=== PATIENT | male | born 1965 | race Caucasian/White ===

== ENCOUNTER → 2024-11-08 | Outpatient (CLI) | payer OTHER | END | disposition home or self-care (01) | LOC: LABPAT 10:03 | PROVIDERS: ATTEND Orthopaedic Surgery | DX: Z01.812 Encounter for preprocedural laboratory examination (principal); Z22.322 Carrier or suspected carrier of Methicillin resistant Staphylococcus aureus; M50.11 Cervical disc disorder with radiculopathy, high cervical region | CPT/HCPCS: 86850; 86900; 86901; 87070 ==

== ENCOUNTER 2024-12-11 10:04 | Day surgery (SDC) | payer SELFPAY ==
--- NOTE | 2024-12-10 12:21 | P.HPOR ---
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 MRI reveals multilevel degenerative changes from C3-7 with severe stenosis, cord compression, and disc herniations, while CT confirms maintained cervical lordosis with minimal facet arthrosis. Physical examination demonstrates bilateral upper extremity weakness (4/5 strength), positive Spurling's sign on the right, and dermatomal deficits in C5-6 and C6-7 distributions. Despite conservative management including PT, medications, and activity modifications, symptoms have progressively worsened, leading to the recommendation for C3-7 total disc replacement. The patient has elected to proceed with surgery after thorough discussion of treatment options and associated risks. 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 Schroeder presents to the office today, 11/08/24, for a pre-operative appointment preceding his C3-7 total disc replacement. He reports pain that radiates into the bilateral upper extremities. He notes numbness and tingling in his bilateral hands with the right being slightly worse than the left. Patient states he is having night time symptoms related to the neck which is making it difficult to fall asleep and stay asleep. He is taking Aleve and Aspirin for his symptoms. Patient ambulates independently. He has tried OTC meds as well as Rx Medications without any improvement of his sx. They continue to get worse and are affecting his day to day activities. He is an active individual and wants to remain this way, but his multilevel cervical issues are preventing this in the way of his radiculopathy, UE issues as well as his disc pain. He states he is starting to have more dexterity issues in his hands and that his fingers are more numb than they were before making it difficult for him to determine what he is grasping. He states he has researched different procedures and has reviewed his MRIa s well as CT scans with other physicians. 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 We discussed this at length. * Patient denies any f/c/sob/cp, perineal numbness or tingling, bowel, or bladder incontinence/retention. * The patients past social, medical, family, surgical history, as well as review of systems, have been reviewed. Please refer to the History and Physical form that has been scanned into our electronic medical record system. * 16 points review of systems completed and as stated in HPI, all other systems reviewed are negative. PAST TREATMENTS: PAST IMAGING: -YES, xray, MRI and CT scan - TRAUMA RELATED: -NO - WORK RELATED: -NO - PT IN LAST 6 MONTHS: -YES - PHYSICIAN DIRECTED HOME EXERCISE PROGRAM: -YES - ACTIVITY MODIFICATION: -YES - MEDICATIONS: -YES, NSAIDs, Celebrex, oral steroids - ALTERNATIVE INTERVENTIONS (CHIROPRACTIC, ACCUPUNCTURE, MASSAGE, RICE): -YES - BRACING: -NO - INJECTIONS (KERRY, TF, RFA): -NO MEDICAL HISTORY: Past Medical History: REVIEWED STATED IN CHART Past Surgical History: REVIEWED STATED IN CHART Social History: REVIEWED STATED IN CHART SMOKING: Never smoker ETOH: None SUBSTANCES: None Family History: REVIEWED STATED IN CHART P1 Current Medications: Rx: amLODIPine 10 mg tablet Ref: 0 Instructions: take 1 tablet (10 mg) by oral route once daily Rx: aspirin 81 mg tablet,delayed release Ref: 0 Instructions: take 1 tablet (81 mg) by oral route once daily Rx: lisinopriL 40 mg tablet Ref: 0 Instructions: take 1 tablet (40 mg) by oral route once daily Rx: metoprolol tartrate 100 mg tablet Ref: 0 Instructions: take 1 tablet (100 mg) by oral route 2 times per day with meals Rx: CeleBREX 200 mg capsule Ref: 0 Instructions: take 1 capsule (200 mg) by oral route 2 times per day P1 PHYSICAL EXAM: General: AOX3, NAD, Well hydrate, well nourished, in no acute distress HEENT: No lumps or masses Extremities: No color changes, no pooling INTEGUMENT: Appearance: Normal color and turgor Surgical Incisions: N/A Hairy Patches: ABSENT Dorsal Skin Dimples: Normal [employer] spots: ABSENT PALPATION: TTP Midline: YES Paracervical: YES Parathoracic: NO Paralumbar: YES SIJ TESTING (Donal's, FABER4, Compression, Distraction, Thigh Thrust, Hip Thrust): NOT TESTED POSTURAL BALANCE: Coronal: BALANCED Sagittal: BALANCED Shoulder height: LEVEL Pelvic Girdle: LEVEL ROM AND APPEARANCE: Neck: RESTRICTED Lumbar: UNRESTRICTED Shoulders: Symmetrical Hips: Symmetrical Knees: Symmetrical Hands: Symmetrical Feet: Symmetrical VASCULAR STATUS: PALPABLE PULSES B/L UE AND LE 2/4 RAD/ULNAR/DP/PT Edema: NONE NEUROLOGICAL EXAMINATION: Mental Status: Awake, alert, fully oriented with normal attention, concentration, and memory. Fluent appropriate speech. CRANIAL NERVES: I: Olfactory not assessed. II: Visual acuity normal, no visual field deficit noted with confrontation. III, IV: Normal pupillary reflexes & intact extraocular movements without nys tagmus. V, : Intact symmetrical facial sensation. VII: Intact symmetrical facial motor movement: Hearing intact. IX, X: Intact gag, swallow, & normal voice. XI: Sternocleidomastoid, trapezius function intact. XII: Tongue midline with normal movements. 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 4 4 LOWER EXTREMITY RIGHT LEFT Hip Flexion 5 5 Knee Extension 5 5 Knee Flexion 5 5 Dorsiflexion 5 5 Plantarflexion 5 5 EHL 5 5 FHL 5 5 REFLEXES (0-4/2, NT): RIGHT LEFT Bicep 2 2 Brachioradialis 3 2 Triceps 2 2 Patellar 2 2 Achilles 1 2 PATHOLOGICAL REFLEXES: RIGHT LEFT WILSON'S ABSENT ABSENT CLONUS ABSENT ABSENT BABINSKI ABSENT ABSENT RECTAL TONE: INTACT/NT SENSATION (0-4, NT): Sensation intact to LT and Pain * C5-T1 distribution BUE * L2-S2 distribution BLE *Exceptions below* DERMATOMAL DEFICIT/RADICULAR PATTERN: C5-6 , C6-7 BUE GAIT AND FUNCTIONAL EVALUATION: AMBULATORY AID NONE ROMBERG'S TEST INTACT HAND AND FINGER DEXTERITY INTACT NO DYSDIADOCHOKINESIA EXAM NEG B/L YES TOE/HEEL WALK INTACT WITH GOOD BALANCE YES SQUAT AND RISE W/O ASSISTANCE TO 60 DEG KNEE FLEXION YES SINGLE LEG STANCE INTACT TRENDE[place]G NEG IMAGING: MRI Date: 08/22/24 Location: [facility] MRI Region: CERVICAL Contrast: N IMAGES ARE REVIEWED WITH THE PATIENT IN OFFICE AND DEMONSTRATE THE FOLLOWING: FINDINGS: Multilevel degenerative changes with love PLL thickening at every level from C3-7 with multilevel disc herniations causing varying degrees of moderate to severe stenosis at these levels. The PLL thickening is concerning for OPLL and CT is warrented to evaluate. There is disc height loss and facet arthrosis noted as well. No overt myelomalacial changes but there is cord compression noted that is bony and ST related in nature. No other lesions noted at this time. No fractures. CT Date: 08/22/24 Location: [facility] MRI Region: CERVICAL Contrast: N IMAGES ARE REVIEWED WITH THE PATIENT IN OFFICE AND DEMONSTRATE THE FOLLOWING: FINDINGS: No OPLL present Mild anterior osteophyte formations at the levels of the discs. Disc collapse at C3-7 levels with anterior degenerative changes. Minimal facet arthrosis noted overall with maintained cervical lordosis and alignment overall. No acute fracture or lesions noted. C0-1 and C1-2 stable. IMPRESSION: It was my pleasure to have seen and examined Bubba. I reviewed the patient's clinical syndrome, physical findings, and imaging studies during the appointment today. It is my impression that the patient has a diagnosis of. 1.C3-C7 spondylosis and stenosis, severe, soft tissue, disc and ligamental stenosis contributory. 2. UE radiculopathy 3. UE paresthesias 4. Neck pain PLAN: Based on my findings I suggest the following course of action: * We discussed at length different treatment options for the patient including non-surgical in the form of medications, continued PT, and conservative measures, injections and surgical options in the form of ACDF, cervical disc replacement, laminoplasty and cervical fusion. We have discussed each at length including but not limited to, potential risks, benefits, pitfalls, outcome expectations. The patient is well informed and very active and this is preventing him from continuing to be active and after his research and discussions with several other physicians and surgeons he has elected to proceed forward with total disc replacement C3-7. We discussed this at length as well as the procedure and risks as are outlined below. The patient would like to go ahead and schedule this procedure with us. He will speak with Valencia at a later date for this scheduling. He understands and is comfortable with this POC. * Surgical Recommendation: C3-7 total disc replacement * Follow up: surgical clearances PCP, pre op labs, EKG and CXR as well as pre op MRSA screen. Cont with current med regiment. New Celebrex Script written today for pt. Cont with conservative treatments as able. Surgical Procedure Risk Review Bubba Schroeder is a 59 year old male presenting for evaluation of sudden onset of UE radiculopathy, progressive UE paresthesias, hand paresthesias, weakness, dropping objects and neck pain. It was my pleasure to have seen and examined Mr. Schroeder. In our visit today we have had a chance to go over subjective complaints, physical examination findings and treatments, including the natural course history without intervention and various interventional options. The imaging demonstrates C3-7 cervical disc displacement with HNP and stenosis that is moderate to severe at each level with central and foraminal stenosis. Minimal facet arthrosis and maintained spinal alignment. NO OPPLL present. On physical exam, Mr. Schroeder demonstrates LUE decreased sensation in the C3-6 distribution of the LUE as well as C4-5 and C7 in the RUE distribution. 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 Thereis no clonus, + hoffmans Left and no babinski. Pt is having difficulty with fine motor skills of the UE. Denies any other sx at this time . I explained to the patient that as his condition progresses it could cause Continued or progressive changes leading to worsening of sx . At this time, based on the patients imaging and physical exam, I recommend surgery in the form or a: C3-7 TOTAL DISC REPLACEMENT . I discussed the risk and benefits of this procedure at length with Mr. Schroeder. The patient agreed to consider pursuing the procedure mentioned above. Plan: 1. C3-7 TOTAL DISC REPLACEMENT 2. Follow up with PCP for surgical clearance 3. Review of surgical risks and benefits as well as an educational packet on the proposed surgical procedure. 4. the indications were discussed with the patient for this disc replacement system, see below. for specific details regarding potential risks as well as guidelines and off label usage. Pt is aware and comfortable with all of this as it was discussed with him and explained in detail and he expressed understanding. Risks: All surgical procedures come with inherent risks, including those related to positioning, anesthesia, intraoperative findings, and postoperative complications. It is important to understand that surgery does not come with any guarantee of a successful outcome as complications and adverse events are always possible. The patient was given a handout in office today discussing the surgical procedure and risks associated with the intervention, both of which were discussed with the patient. These risks include but are not limited to the following: ? Experiencing same, different or even worse symptoms in back, neck, arms, or legs compared to before surgery. ? Requiring further surgery or other forms of treatment presently or at some time in the future at same or other levels of the intended spine surgery. ? On an extreme but fortunately relatively rare basis severe complication such as blindness, stroke, heart attack, temporary and/or permanent nerve injury, paralysis, coma, or may occur, sometimes without known explanation. ? Surgical complications may include but are not limited to risk of infection, fluid accumulation in the surgical dissection site, including a seroma or hematoma, that requires additional surgery, wound drainage, bleeding, new numbness or weakness, vision changes/loss, spinal fluid leakage, non-healing and/or infected incision, headaches, difficulty or inability to swallow, hoarseness, hemopneumothorax, pneumothorax, impotence, retrograde ejaculation, vaginal dryness; injury to nerves, spinal cord, blood vessels, lymphatics or other vital organs (i.e., bowel injury, injury to the great vessels); heterotopic bone formation; complications related to the hardware such as screws, rods, cages including misplaced hardware, device failure, instrumentation at the wrong spine level, hardware fracture/breakage, or hardware loosening; vertebral failure of the spinal column above or below the newly placed hardware; retained surgical instrumentations or devices and the need for further surgery. ? Medical risks of the planned spine surgery include but are not limited to generalized Infections to the whole body or local areas outside of the surgical site (sepsis), heart attack, bleeding, anaphylaxis, meningitis, seizure, epilepsy, hearing loss, burn river, laceration of the head or other areas of the body, bruising, hypersensitivity of the skin, bladder over distension; allergic reaction; shoulder injury related to positioning; fat, blood and air clots to other areas of the body like heart, lungs, brain; failure of internal organs such as lungs, kidneys, liver and excessive bleeding. If blood transfusions are necessary, note that transfusions may cause intolerance reactions such as anaphylaxis or other complex reactions. Despite best efforts, the results of spine surgery might not heal in terms of bone, soft tissues such as skin, fascia, ligaments, and joints. Additionally, in order to achieve best possible results, spine surgery may be carried out beyond the initially planned levels and involve decompression, fusion including insertion of hardware at levels other than the original intended area of surgical interest change some portions of the procedure in order to ensure the best possible outcomes. With spine surgery and spinal fusion, there are different off label uses of instrumentation (devices, implants and hardware) as well as biological substances (bone morphogenic proteins, demineralized bone matrix) as well as using extra bone from allograft sources (i.e. cadaver bone) or autograft (iliac crest bone, ribs, or the spine itself). The patient has been given information about these practices and their inherent risks and benefits. [place] [facility] Physician Assistants are medically trained surgical providers who function in the outpatient, inpatient, and operating room setting under the direct supervision of the attending surgeon.They assist in the operating room with direct supervision of the attending surgeons. The patient has had a chance to review all the listed information, has been given print outs detailing this information, and has had all his/her questions answered to their satisfaction. It was my pleasure to have seen and examined Mr. Schroeder. In our visit today we have had a chance to go over my understanding of our patient's current condition, the natural course history without intervention and various interventional options. Questions were invited and answered, and the patient wishes to proceed as outlined above. I have seen and examined the patient for 25 minutes and we have spent more than 50% of the time in repeat and detailed counseling about the patient's condition, its natural course history with out and as much as can be predicted with surgery and re-review of various surgical treatment options. In conclusion,Mr. Schroeder and his spouse/partner requested we proceed with the tiffanie boone suggested surgery and are willing to accept risks and limitations of the suggested surgery as nature of the disease process and our best attempts at treatment for the condition. 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 Over the past 6+ weeks, he has experienced worsening bilateral upper extremity radiculopathy (right worse than left), declining fine motor skills, progressive hand numbness affecting object identification, and consistent neck pain rated 7/10 on the VAS scale. Physical examination reveals bilateral upper extremity weakness (4/5 strength across all muscle groups), positive Spurling's sign on the right, and dermatomal deficits in C5-6 and C6-7 distributions bilaterally. Imaging studies confirm severe multilevel pathology, with MRI showing multilevel degenerative changes C3-7, severe central and foraminal stenosis, cord c ompression, and multiple disc herniations. CT scanning demonstrates maintained cervical lordosis with minimal facet arthrosis, making him an appropriate candidate for arthroplasty. Despite aggressive conservative management including physical therapy, multiple medication trials (NSAIDs, oral steroids, muscle relaxants), activity modifications, and alternative therapies, the patient demonstrates documented progression of symptoms between his initial visit on 08/30/24 and follow-up on 09/18/24. The proposed C3-7 total disc replacement is medically necessary based on his progressive neurological deficits, failed conservative management, significant functional impairment affecting his occupation, and radiographic evidence of severe multilevel pathology with cord compression. The patient's [place] iv[place] lifestyle, relatively young age, and occupational demands make him an excellent candidate for arthroplasty over fusion, as maintenance of cervical mobility is crucial for his functional needs. Without intervention, there is significant risk of further neurological deterioration. The chosen procedure is both reasonable and necessary given his clinical presentation, progressive decline, and appropriate anatomical findings supporting arthroplasty. 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 Physical examination documents significant bilateral upper extremity weakness (4/5 strength), dermatomal deficits in C5-6 and C6-7 distributions bilaterally, and impaired fine motor control. Imaging studies (MRI and CT dated 08/22/24) demonstrate severe multilevel degenerative changes from C3-7 with cord compression, severe central and foraminal stenosis, and multiple disc herniations. CT confirms maintained cervical lordosis and minimal facet arthrosis, making him an appropriate candidate for arthroplasty over fusion. The patient has failed comprehensive conservative management including physical therapy, multiple medication trials (NSAIDs, oral steroids, muscle relaxants), and activity modifications. Documentation shows progression of symptoms between initial evaluation (08/30/24) and follow-up (09/18/24), with worsening neurological deficits impacting his ability to work and perform activities of daily living. Given his relatively young age, active lifestyle, occupational demands, and appropriate anatomical findings, total disc replacement is the optimal surgical approach to address his pathology while maintaining cervical mobility. CPT codes for authorization include 17906 (second level arthroplasty), 74337 (third and fourth level arthroplasty), 23409 (removal of arthroplasty), and 44599 (anterior cervical discectomy). Primary diagnosis codes include M50.12, M48.02, M54.12, and M50.32. FOLLOW UP: POST-OP PLAN AT NEXT VISIT: RECHECK PATIENT EDUCATION: Medications Reviewed: YES In our visit today Mr. Schroeder and I have had a chance to go over my understanding of the patient's current condition, the natural course history without intervention and various interventional options. Questions were invited and answered, and the patient wishes to proceed as outlined above. I will be sure to keep you updated after Mr. Schroeder returns here for further follow-up. Thank you again for your referral. Please do not hesitate to contact me if you have any further questions. Signed and authenticated by: Kyle Palacios [facility] [address] [place] [id number] . This message is confidential, intended only for the named recipient(s) and may contain information that is privileged or exempt from disclosure under applicable law. If you are not the intended recipient(s), you are notified that the dissemination, distribution or copying of this information is prohibited. If you received this message in error, please notify the sender then delete this message. # SIGNED BY Kyle Hammonds (GOO)11/22/2024 07:03AM Past Medical History Past Medical History: Atrial Fibrillation, Hyperlipidemia, Hypertension History of Any Multi-Drug Resistant Organisms: None Reported Past Surgical History: Appendectomy, Cardiac Ablation, Orthopedic Surgery Additional Past Surgical History / Comment(s): menisicus repair, Past Anesthesia/Blood Transfusion Reactions: No Reported Reaction Additional Past Anesthesia/Blood Transfusion Reaction / Comment(s): no blood tx hx Smoking Status: Never smoker - Past Family History Father Family Medical History: Cancer Additional Family Medical History / Comment(s): lung Mother Family Medical History: Cancer Additional Family Medical History / Comment(s): lung Medications and Allergies Home Medications Medication Instructions Recorded Confirmed Type Aspirin [Adult Low Dose Aspirin EC] 81 mg PO DAILY 12/07/24 12/07/24 History Celecoxib [CeleBREX] 200 mg PO BID 12/07/24 12/07/24 History Metoprolol Succinate (ER) [Toprol 100 mg PO BID 12/07/24 12/07/24 History Xl] Rosuvastatin Calcium 20 mg PO DAILY 12/07/24 12/07/24 History Terbinafine [LamISIL] 250 mg PO DAILY 12/07/24 12/07/24 History amLODIPine BESYLATE [Amlodipine 10 mg PO DAILY 12/07/24 12/07/24 History Besylate] lisinopriL 40 mg PO DAILY 12/07/24 12/07/24 History Allergies Allergy/AdvReac Type Severity Reaction Status Date / Time No Known Allergies Allergy Verified 12/07/24 08:47 Physical Examination Osteopathic Statement: *. No significant issues noted on an osteopathic structural exam other than those noted in the History and Physical/Consult.
[~2024-12-11 10:04] MED LIST: HYDROmorphone 0.5 MG/0.5 ML SYRINGE IVP PRN; LIDOCAINE 1% (10MG/ML) FOR IV START INTRADERMA PRN; MIDAZOLAM 2 MG/2 ML VIAL IV PRN; ONDANSETRON 4 MG/2 ML VIAL IVP PRN; TRANEXAMIC 1,000 MG/100ML-NACL 1,000 MG in SALINE 1 100ML.BAG IVPB PRN; fentaNYL (PF) 50 MCG/ML 2 ML AMP IVP PRN
[2024-12-11] MEDS: IV FLUID CONTINUATION 1,000 ML IV ONE ×3 (10:38→11:01)
[2024-12-11] MEDS: ACETAMINOPHEN TAB 500 MG TAB PO PRN (11:02)
[2024-12-11] MEDS: GABAPENTIN 300 MG CAP PO PRN (11:02)
[2024-12-11] MEDS: LACTATED RINGERS 1,000 ML IV SCH (11:02)
[2024-12-11] MEDS: ONDANSETRON 4 MG/2 ML VIAL IVP ONE (11:03)
[2024-12-11] MEDS: DEXAMETHASONE SOD PHOSPHATE 4 MG/ML 1 ML VIAL IV ONE (11:03)
[2024-12-11 11:19] LABS: Basophils % (A) 1 %; Eosinophils # (A) 0.3 k/uL (0-0.7); Eosinophils % (A) 6 %; HCT 48.4 % (39.0-53.0); HGB 15.7 gm/dL (13.0-17.5); Lymphocytes # (A) 1.4 k/uL (1.0-4.8); Lymphocytes % (A) 29 %; MCH 30.8 pg (25.0-35.0); MCHC 32.4 g/dL (31.0-37.0); MCV 95.2 fL (80.0-100.0); Mean Platelet Volume 7.7; Monocytes # (A) 0.3 k/uL (0-1.0); Monocytes % (A) 7 %; Neutrophils # (A) 2.7 k/uL (1.3-7.7); Neutrophils % (A) 55 %; Platelet Count 194 k/uL (150-450); RBC 5.09 m/uL (4.30-5.90); RDW 12.9 % (11.5-15.5); WBC 4.8 k/uL (3.8-10.6)
[2024-12-11 12:03] LABS: African American GFR (CKD) >90 (>60 ml/min/1.73 sqM); Anion Gap 12 mmol/L; Blood Urea Nitrogen 19 mg/dL (9-20); Calcium 9.1 mg/dL (8.4-10.2); Carbon Dioxide 19 mmol/L (22-30); Chloride 107 mmol/L (98-107); Glucose 98 mg/dL (74-99); Non-African American GFR(CKD) 80 (>60 ml/min/1.73 sqM); Sodium 138 mmol/L (137-145)
[2024-12-11 12:05] LABS: Potassium 5.1 mmol/L (3.5-5.1)
[2024-12-11] MEDS ORDERED: PROPOFOL 10 MG/ML 20 ML VIAL IV ONE (12:43)
[2024-12-11] MEDS ORDERED: NEOSTIGMINE 1 MG/ML 10 ML VIAL ONE (12:43)
[2024-12-11] MEDS ORDERED: HYDROmorphone (PF) 1 MG/ML ONE (12:43)
[2024-12-11] MEDS ORDERED: GLYCOPYRROLATE 0.2 MG/ML 2 ML VIAL ONE (12:43)
[2024-12-11] MEDS ORDERED: ROCURONIUM 10 MG/ML (5 ML VIAL) IV ONE (12:43)
[2024-12-11] MEDS ORDERED: SUCCINYLCHOLINE CHLORIDE 200 MG/10 ML VIAL IV ONE (12:43)
[2024-12-11] MEDS ORDERED: fentaNYL (PF) 50 MCG/ML 2 ML AMP ONE (12:43)
[2024-12-11] MEDS ORDERED: LIDOCAINE 1% INJ 10MG/ML (20 ML MDV) ONE (12:43)
[2024-12-11] MEDS ORDERED: KETAMINE HCL IN 0.9 % NACL 50 MG/5 ML SYRINGE ONE (12:43)
[2024-12-11] MEDS ORDERED: MIDAZOLAM 2 MG/2 ML VIAL ONE (12:43)
[2024-12-11] MEDS ORDERED: TRANEXAMIC 1,000 MG/100ML-NACL PREMIX BAG ONE (12:43)
[2024-12-11] MEDS: THROMBIN (BOVINE) 5,000 UNIT VIAL TOPICAL ONE (12:46)
[2024-12-11] MEDS: LACTATED RINGERS 1,000 ML IV ONE ×2 (13:41→17:09)
[2024-12-11] MEDS ORDERED: CYCLOBENZAPRINE 5 MG TAB PO PRN (15:00)
[2024-12-11] MEDS ORDERED: MAGNESIUM HYDROXIDE 2,400 MG/30 ML CUP PO PRN (15:00)
[2024-12-11] MEDS ORDERED: HYDROcodone/APAP 5-325MG 1 EACH TAB PO PRN (15:00)
[2024-12-11] MEDS ORDERED: ONDANSETRON 4 MG/2 ML VIAL IVP PRN (15:00)
[2024-12-11] MEDS ORDERED: SENNOSIDES-DOCUSATE SODIUM 1 EACH TAB PO PRN (15:00)
[2024-12-11] MEDS ORDERED: HYDROmorphone 0.5 MG/0.5 ML SYRINGE IVP PRN (15:00)
--- NOTE | 2024-12-11 17:55 | XR ---
EXAMINATION TYPE: XR cervical spine limited, FL guidance operating room Intraoperative/procedural flu oroscopic services were provided. CLINICAL INDICATION:Male, 59 years old with history of POST CERVICAL DECOMPRESSION; , [facility] FINDINGS: Postsurgical changes from cervical decompression. No radiographic evidence for complication. Total fluoroscopy time is 1.28 min. DAP: 2.8147 Gycm2 Please see the operative/procedural note for further details. [facility], , 12/11/2024 5:53 PM
--- NOTE | 2024-12-11 18:00 | P.PN ---
Progress Note - Text Progress Note Date: 12/11/24 BRIEF POST OP: PRE OP DX: 1.C3-C7 spondylosis and stenosis, severe, soft tissue, disc and ligamental stenosis contributory. 2. UE radiculopathy 3. UE paresthesias 4. Neck pain POST OP DX: SAME PROCEDURE: C5-7 ACDF C3-5 TDA SURGEON: NASRA ASSIST: BRANCH ANESTHESIA: GETA EBL: 75 cc FLUIDS: 2000 cc URINE: 350cc COMPLICATION: NONE DISPO: STABLE TO PACU PLAN: -ADMIT TO OBS -SOFT C COLLAR -AMBULATE WITH ASSIST -PT/OT -PAIN CONTROL PRN -DRAIN MANAGEMENT -GI/DVT PPX -PLAN FOR DC HOME TOMORROW IN AM
[2024-12-11] MEDS: GABAPENTIN 300 MG CAP PO SCH (20:19)
[2024-12-11] MEDS: ACETAMINOPHEN TAB 325 MG TAB PO SCH (20:20)
[2024-12-11] MEDS: HYDROmorphone 1 MG/ML 1 ML SYRINGE IVP PRN (20:26)
--- NOTE | 2024-12-12 00:21 | P.CONS ---
History of Present Illness - Reason for Consult Consult date: 12/11/24 - History of Present Illness Patient is a 59-year-old male with a past medical history atrial fibrillation (not on anticoagulation), hyperlipidemia, hypertension. He is here due to scheduled surgery for progressive severe cervical spine stenosis, cord compression, disc herniations that is characterized by bilateral upper extremity radiculopathy, numbness, tingling that is worse on the right side. He is post op day 1 from scheduled C3-C7 total disc replacement. Patient denies having a bowel movement and has not voided yet. Patient states pain levels are minimal at 2/10 at the time of interview. Patient denies any headache, chest pain, shortness of breath, abdominal pain. Pertinent positives and negatives as discussed above, a complete review of systems was performed and all other systems are negative. Vitals: Signs Reviewed Physical Exam: General: nontoxic, no distress, appears at stated age Derm: warm, dry, intact Head: atraumatic, normocephalic, symmetric Neck: Soft c-collar in place Eyes: EOMI, anicteric sclera Mouth: no lip lesion, mucus membranes moist Cardiovascular: S1 S2 reg, no murmur, rubs, or gallops Lungs: CTA bilateral, no rhonchi, no rales, no accessory muscle use Abdominal: mildly distended non-tender to palpataion, no appreciable organomegaly Extremities: no gross muscle atrophy, no edema, no contractures Neuro: Alert, Oriented, CNII-XII grossly intact, gait normal Psych: well appearing, appropriate affect Data received today: WBC 4.8, Hgb 15.7, platelet 194, sodium 138, potassium 5.1, CO2 19, BUN 19, creatinine 1.02 Assessment and Plan: #. Hypertension #. Hyperlipidemia #. Atrial fibrillation (not on anticoagulation) Continue amlodipine 10 mg p.o. daily Continue lisinopril 40 mg p.o. daily Continue metoprolol succinate 100 mg p.o. twice daily Continue rosuvastatin 20 mg p.o. daily Continue home ASA 81 mg po qd #. Severe spinal spondylosis and stenosis s/p C3-C7 total disc replacement POD 1 Pain, DVT prophylaxis, and antibiotics deffered to ortho team PT/OT ortho team likely to discharge Thank you for this consultation. Will continue to follow for duration of hospital course. Please do not hesitate for any questions. Liya Ozuna MD PGY-1 IM Dictation was produced using [employer] dictation software. please excuse any grammatical, word or spelling errors. Past Medical History Past Medical History: Atrial Fibrillation, Hyperlipidemia, Hypertension History of Any Multi-Drug Resistant Organisms: None Reported Past Surgical History: Appendectomy, Cardiac Ablation, Orthopedic Surgery Additional Past Surgical History / Comment(s): menisicus repair, Past Anesthesia/Blood Transfusion Reactions: No Reported Reaction Additional Past Anesthesia/Blood Transfusion Reaction / Comm: no blood tx hx Past Psychological History: No Psychological Hx Reported Smoking Status: Never smoker Past Alcohol Use History: Daily Additional Past Alcohol Use History / Comment(s): 2-4 drinks per day Past Drug Use History: None Reported - Past Family History Father Family Medical History: Cancer Additional Family Medical History / Comment(s): lung Mother Family Medical History: Cancer Additional Family Medical History / Comment(s): lung Medications and Allergies Home Medications Medication Instructions Recorded Confirmed Type Aspirin [Adult Low Dose Aspirin EC] 81 mg PO DAILY 12/07/24 12/11/24 History Celecoxib [CeleBREX] 200 mg PO BID 12/07/24 12/11/24 History Metoprolol Succinate (ER) [Toprol 100 mg PO BID 12/07/24 12/11/24 History Xl] Rosuvastatin Calcium 20 mg PO DAILY 12/07/24 12/11/24 History Terbinafine [LamISIL] 250 mg PO DAILY 12/07/24 12/11/24 History amLODIPine BESYLATE [Amlodipine 10 mg PO DAILY 12/07/24 12/11/24 History Besylate] lisinopriL 40 mg PO DAILY 12/07/24 12/11/24 History Allergies Allergy/AdvReac Type Severity Reaction Status Date / Time No Known Allergies Allergy Verified 12/11/24 10:47 Physical Exam Vitals: Vital Signs Temp Pulse Resp BP Pulse Ox 12/11/24 21:24 93 169/106 97 12/11/24 21:09 93 175/104 93 L 12/11/24 20:54 92 166/97 94 L 12/11/24 20:38 87 162/101 96 12/11/24 20:24 98.1 F 95 18 175/102 98 12/11/24 19:35 79 16 143/78 98 12/11/24 19:16 78 16 149/79 97 12/11/24 19:01 73 16 129/81 99 12/11/24 18:46 76 16 141/89 12/11/24 18:31 75 14 145/89 96 12/11/24 18:23 69 14 130/85 99 12/11/24 18:08 74 14 123/73 99 12/11/24 17:53 97.2 F L 75 14 126/76 98 12/11/24 11:15 154/95 12/11/24 10:51 97.0 F L 68 16 166/95 99 Intake and Output 12/11/24 12/11/24 12/12/24 14:59 22:59 06:59 Intake Total 2350 300 Output Total 670 Balance 2350 -370 Intake: IV 2350 300 Output: Urine 570 Estimated Blood Loss 100 Other: Weight 115.4 kg 115.4 kg Results CBC & Chem 7: 12/11/24 10:56 12/11/24 10:56 Labs: Abnormal Lab Results - Last 24 Hours (Table) 12/11/24 Range/Units 10:56 Carbon Dioxide 19 L (22-30) mmol/L
--- NOTE | 2024-12-12 06:24 | P.OP ---
Date of Procedure: 12/11/24 Preoperative Diagnosis: 1.C3-C7 spondylosis and stenosis, severe, soft tissue, disc and ligamental stenosis contributory. 2. UE radiculopathy 3. UE paresthesias 4. Neck pain Postoperative Diagnosis: 1.C3-C7 spondylosis and stenosis, severe, soft tissue, disc and ligamental st enosis contributory. 2. UE radiculopathy 3. UE paresthesias 4. Neck pain Procedure(s) Performed: 1. C6-7 ANTERIOR CERVICAL ARTHRODESIS 2. C5-6 ANTERIOR CERVICAL ARTHRODESIS 3. C4-5 CERVICAL DISC ARTHROPLASTY 4. C3-4 CERVICAL DISC ARTHROPLASTY 5. C5-6 AND C6-7 ANTERIOR INSTRUMENTATION 6. 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 MRI reveals multilevel degenerative changes from C3-7 with severe stenosis, cord compression, and disc herniations, while CT confirms maintained cervical lordosis with minimal facet arthrosis. Physical examination demonstrates bilateral upper extremity weakness (4/5 strength), positive Spurling's sign on the right, and dermatomal deficits in C5-6 and C6-7 distributions. Despite conservative management including PT, medications, and activity modifications, symptoms have progressively worsened, leading to the recommendation for C3-7 total disc replacement. The patient has elected to proceed with surgery after thorough discussion of treatment options and associated risks. We again discussed fusion as back up plan and he is OK with whatever needs to be done to treat him appropriately. We discussed risks and benefits again of all with and him. Description of Procedure: C3-5 TDA; C5-7 ACDF The patient was seen and examined in the preoperative area. All preoperative protocols were followed. Informed consent was obtained, risks and benefits of the procedure were discussed at length. Risks including bleeding infection damage to the surrounding tissue and risk of reoperation were discussed with the patient. Risk of anesthesia up to and including was discussed with the patient. These are outlined in the risk review. They were willing to accept these risks and all the risks of surgery. The patient was given a weight-based dose of antibiotics in the form of 2 g Ancef. The patient was seen and evaluated by the anesthesia team who deemed them fit for surgery. The site was marked, the patient was willing to proceed with the procedure. The patient was transferred to the operative suite by the Department of a nesthesia. They were then drifted off to sleep by the department anesthesia and GETA was performed. The patient tolerated this well. Oneil catheter was placed by nursing staff, a-traumatically. Once confirmation of lines and ventilation the patient was transferred to a Supine Agapito table very carefully. All bony prominences including wrists, elbows, axilla, chest, hips, and thighs, and feet were padded very well. Special attention was paid to the genitalia, and these were padded accordingly. SCDs were placed on bilateral lower extremities and were connected. Arms were well padded and placed at their side thumbs up. Once in position, again we confirmed good ventilation capabilities and that lines were running appropriately. The patients Cervical spine was then exposed. 1010s were placed outlining the incision site. Standard alcohol was used to clean the incision site and allowed to dry. C-arm was used to bio-jose l the patient and confirm level for incision which was marked with a skin marker. Operative briefing was performed with all teams and everyone in agreement to proceed. The patient was then prepped and draped in a normal sterile fashion. Timeout was then performed, and all parties agreed with the procedure to be performed. Transverse skin incision was then made on the right side of the patient's neck 3 cm and dissection taken down to the platysma which was split transversely. Sub platysma flap was made, and interval identified between SCM and medial structures. Omohyoid was visualized and protected. Blunt dissection taken down to the anterior cervical fascia which was identified. Blunt probe was then placed and lateral image taken which confirmed levels for operation. These levels were then marked with a bovi. Subperiosteal dissection of the longissimus muscles were then done over C3-7 preparing each level and identifying uncovertebral joints bilaterally. Retractor was then placed deep to these muscles and held in place with a bed arm. Starting at C6-7, [place] pins were placed into C6 and C7 and gentle distraction taken out over the levels. Regina rongeur used to remove disc material. Operating microscope brought in for visualization. Complete discectomy performed at this level with curette, rongure and pituitary. There was exhuberent osteophytes at this level anteriorly and posteriorly with thickened ligament and severe stenosis. High speed jose used to remove osteophytes anteriorly and posteriorly until PLL was identified. 6-0 up curette then used to identify the canal and resect the PLL. 2-0 and 3-0 Kerrison used then to remove PLL and disc herniation and performed b/l foraminotomies. Once good decompression was accomplished, meticulous hemostasis was performed. Sizers were then placed under lateral fluoroscopy until the desired height and lordosis. TDA guides and sizes were not adequate nor was the motion at this level to justify a TDA and so fusion was selected as the best treatment for the severely collapse and stenotic area. Cage was then selected, packed with autograft and allograft and placed under lateral imaging. Once in good position it was tested and stable. Motors run before and after cage placement were stable. The wound was irrigated, and autograft placed lateral to the cage anteriorly for fusion. [place] pin was then removed from C7 and placed into C5. Gentle distraction take n out over C5-6 now. Again, exhuberent anterior and posterior osteophytes were noted. There was neruological hyperactivity during this level of decompression even with the slightest manipulation this along with the severe stenosis and foramainal stenosis and need for height resotration and lordosis, it was elected to fuse this level as well. Complete discectomy done at C5-6 as described including decompression, b/l foraminotomies and PLL resection. Burring of endplates was minimal, osteophytes removed as described. Spacers were then sized and placed under lateral imaging. Cage selected, packed with graft and placed under lateral images. Once in position, meticulous hemostasis performed, and motors remained stable before and after cage placement. AP image confirmed good placement of cages. Wound was irrigated. After each cage placement, anterior instrumenting screws were placed through the cage anterior plate with good purchase using lateral imaging. The screws were placed inferiorly and superiorly and locked. All locking mechanisms were set, and all screws had good purchase. AP and lateral images taken confirmed good placement of hardware and good reduction and restorationist of height. The wound was then irrigated copiously with NSS. We then proceeded to C3-4 and C4-5. Starting at C4-5. [place] pins were placed into C4 and C5 and gentle parallel distraction taken out over the levels. Regina rongure used to remove disc material. Operating microscope brought in for visualization. Complete discectomy performed at this level with curette, rongure and pituitary. High speed jose used to remove osteophytes anteriorly and posteriorly until PLL was identified. 6-0 up curette then used to identify the canal and resect the PLL. 2-0 and 3-0 Kerrison used then to remove PLL and disc herniation and performed b/l foraminotomies. Once good decompression was accomplished, meticulous hemostasis was performed. Sizers were then placed under lateral fluoroscopy until the desired height and alignment. A 6 trial was then placed and secured. Distraction removed for keel broach. AP and lateral image confirmed central placement. Chisel was then sent over the trial to create the keel cuts. Trial was then removed and gentle distraction placed again. Further clean up of the endplates done as well as foramen and decompression. Disc space was irrigated thoroughly. Final implant was then placed under lateral image to match the keel cuts and was placed optimally on AP and lateral imaging. Once inplace the implant was tested and was secured. Motors run before and after implant placement were stable. The wound bed was irrigated. Distraction pins removed and bone wax placed in their void. Bone wax placed on any bleeding bony surfaces. Surgicel then placed deep in the wound and retractors removed after inspection without injury. AP and lateral images confirmed good placement of implant with good height and alignment resotration. Attention was then drawn to the C3-4 level. [place] pins were placed into C3 and C4 and gentle parallel distraction taken out over the levels. Regina rongure used to remove disc material. Operating microscope brought in for visualization. Complete discectomy performed at this level with curette, rongure and pituitary. High speed jose used to remove osteophytes anteriorly and posteriorly until PLL was identified. 6-0 up curette then used to identify the canal and resect the PLL. 2-0 and 3-0 Kerrison used then to remove PLL and disc herniation and performed b/l foraminotomies. Once good decompression was accomplished, meticulous hemostasis was performed. Sizers were then placed under lateral fluoroscopy until the desired height and alignment. A 6 trial was then placed and secured. Distraction removed for cuts. AP and lateral image confirmed central placement. Chisel was then sent over the trial to create the keel cuts. Trial was then removed and gentle distraction placed again. Further clean up of the endplates done as well as foramen and decompression. Disc space was irrigated thoroughly. Final implant was then placed under lateral image to match the keel cuts and was placed optimally on AP and lateral imaging. Once inplace the implant was tested and was secured. Motors run before and after implant placement were stable. The wound bed was irrigated. Distraction pins removed and bone wax placed in their void. Bone wax placed on any bleeding bony surfaces. Surgicel then placed deep in the wound and retractors removed after inspection without injury. Final AP and lateral images confirmed good placement of implant with good height and alignment resotration. The wound was then irrigated copiously with NSS. Surgicel placed deep in the wound. A deep drain was placed and secured to the skin with a stitch. Layered closure then performed with 3-0 Vicryl in the platysma and sub-Q tissue. 4-0 Strata fix in the subcuticular tissue. The wound was then cleaned, and dried and skin glue placed. Once glue dried an Opifoam was placed. The patient was then transferred back to their hospital bed a-traumatically. The drain continued to hold suction. They were placed in a soft collar. They we re then awakened by the department of anesthesia having tolerated the procedure well without complications.
[2024-12-12 07:45] VITALS: BP 132/88; PULSE 82; RESP 16; TEMP 98.2
[2024-12-12] MEDS: ATORVASTATIN 40 MG TAB PO SCH (07:45)
[2024-12-12] MEDS: lisinopriL 20 MG TAB PO SCH (07:45)
[2024-12-12] MEDS: ASPIRIN 81 MG PO SCH (07:45)
[2024-12-12] MEDS: amLODIPine 10 MG TAB PO SCH (07:45)
[2024-12-12] MEDS: METOPROLOL SUCCINATE (ER) 100 MG TAB.ER.24H PO SCH (07:46)
[2024-12-12 08:51] LABS: Basophils # (A) 0.04 X 10*3/uL (0.00-0.10); Basophils % (A) 0.4 %; Eosinophils # (A) 0.02 X 10*3/uL (0.04-0.35); Eosinophils % (A) 0.2 %; HCT 43.4 % (39.6-50.0); HGB 14.7 g/dL (13.0-17.0); Lymphocytes # (A) 0.76 X 10*3/uL (0.90-5.00); Lymphocytes % (A) 8.4 %; MCH 31.5 pg (27.0-32.0); MCHC 33.9 g/dL (32.0-37.0); MCV 93.1 FL (80.0-97.0); Mean Platelet Volume 10.9 FL (9.5-12.2); Monocytes # (A) 0.85 X 10*3/uL (0.20-1.00); Monocytes % (A) 9.4 %; NRBC Per 100 WBC 0 X 10*3/uL (0.00-0.01); Neutrophils # (A) 7.32 X 10*3/uL (1.80-7.70); Neutrophils % (A) 80.9 %; Platelet Count 209 X 10*3/uL (140-440); RBC 4.66 X 10*6/uL (4.40-5.60); RDW 12.6 % (11.5-14.5); WBC 9.05 X 10*3/uL (4.50-10.00)
[2024-12-12 09:09] LABS: BUN/Creat Ratio 14.36 Ratio (12.00-20.00); Blood Urea Nitrogen 15.8 mg/dL (9.0-27.0); Carbon Dioxide 20.6 mmol/L (21.6-31.8); Chloride 103 mmol/L (96-109); Glucose 121 mg/dL (70-110); Potassium 4.4 mmol/L (3.5-5.5); Sodium 137 mmol/L (135-145)
--- NOTE | 2024-12-12 09:42 | P.PN ---
Subjective Progress Note Date: 12/12/24 Principal diagnosis: 1.C3-C7 spondylosis and stenosis, severe, soft tissue, disc and ligamental stenosis contributory. 2. UE radiculopathy 3. UE paresthesias 4. Neck pain Patient seen and examined this morning. Patient is resting comfortably in bed. Dr. Winston was present for assessment. Surgical incision to the anterior cervical spine, edges are well-approximated with glue intact. DAKOTAH drain did have 30 mL output overnight. DAKOTAH drain removed at this time, new dressing has been applied. Discharge instructions have been reviewed. Discussed with patient pain management and to utilize ice packs along shoulders and the front of the cervical region. Patient verbalizes understanding. Patient states that he has been ambulatory to the restroom, tolerating activity well. Patient will be discharged home later this morning. No acute concerns. Objective - Vital Signs Vital signs: Vital Signs Temp 98.2 F 12/12/24 07:44 Pulse 82 12/12/24 07:44 Resp 16 12/12/24 07:44 BP 132/88 12/12/24 07:44 Pulse Ox 94 L 12/12/24 07:44 FiO2 Intake & Output 12/11/24 12/12/24 12/12/24 18:59 06:59 18:59 Intake Total 2650 2160 Output Total 670 30 Balance 1979 2129 Weight 115.4 kg 115.4 kg Intake: IV 2650 Oral 2160 Output: Drainage 30 Medial Neck 30 Urine 570 Estimated Blood Loss 100 Other: # Voids 4 - Exam Physical Examination General: The patient is awake and alert, in no acute distress. Skin: Skin is warm and dry with no obvious rashes or lesions. Surgical i ncision to the anterior cervical spine, edges are well-approximated with glue intact. DAKOTAH drain present with 30 mL output overnight. Drain has been removed and new dressing has been applied. Eye: Pupils are equal, round and reactive to light, extra-ocular movements are intact; there is normal conjunctiva bilaterally. Neck: The neck is supple, there is moderate tenderness around the incision site and limited range of motion due to surgical procedure and placement of soft cervical collar. Respiratory: Respirations are non-labored. Gastrointestinal: Soft, non-distended, non-tender abdomen. Back: There is no tenderness to palpation in the midline, paralumbar, parathoracic or buttocks region. There is no obvious deformity. Musculoskeletal: ROM limited secondary to pain and stiffness from surgical procedure. Right: Shoulder abduction 5/5, elbow flexors 5/5, wrist dorsiflexors 5/5. finger abductor 5/5, germination testing manager 5/5, hip flexor 5/5, knee flexor 5/5, ankle dorsiflexor 5/5, ankle plantarflexion 5/5 and extensor hallucis 5/5 Left: Shoulder abduction 5/5, elbow flexors 5/5, wrist dorsiflexors 5/5. finger abductor 5/5, germination testing manager 5/5, hip flexor 5/5, knee flexor 5/5, ankle dorsiflexor 5/5, ankle plantarflexion 5/5 and extensor hallucis 5/5. Neurological: CN 2-12 intact. There are no obvious motor or sensory deficits. Movement and coordination equal and intact. Sensory exam to light touch intact C5-T1 and intact from L2-S1. Reflexes 2/4 in bilateral upper and lower extremities. Negative Hoffmans, babinski, and clonus signs. Psychiatric: Cooperative, appropriate mood & affect, normal judgment. - Labs CBC & Chem 7: 12/12/24 03:56 12/12/24 03:56 Labs: Abnormal Lab Results - Last 24 Hours (Table) 12/11/24 Range/Units 10:56 Carbon Dioxide 19 L (22-30) mmol/L Assessment and Plan Assessment: Postop day 1: C3-C4, C4-C5 TDR with C5-C7 ACDF Plan: -Appreciate regulatory affairs consultant and team management. -Activity: Ambulate QID, OOB all meals, up and about, limit lifting bending twisting to less than 5 lbs. Use walker or cane if needed for stability. -Daily PT/OT, increase ambulation strength and balance. -Soft cervical collar on at all times, may remove for showers -Pain control: Adequate at this time -Meds: reviewed -GI ppx: senna, Miralax -DVT PPX: Aspirin 81mg daily -Hygiene: Maintain incision clean and dry. May change dressing as needed, please document in notes if performed. -Encourage IS 10x/hr -Dispo: Anticipate discharge home later this morning *I reviewed and discussed this case with my attending Dr. Winston, whom has reviewed this chart and films and is in agreement with assessment and plan of care as outlined above. I have personally seen and examined the patient, performed the documentation and the assessment and plan as written. Number of minutes spent on the visit: 20m.
[2024-12-12] MEDS: HYDROcodone/APAP 10-325MG 1 EACH TAB PO PRN (10:47)
--- NOTE | 2024-12-12 12:12 | P.PN ---
Subjective Progress Note Date: 12/12/24 Patient is a 59-year-old male with a past medical history atrial fibrillation (not on anticoagulation), hyperlipidemia, hypertension. He is here due to scheduled surgery for progressive severe cervical spine stenosis, cord compression, disc herniations that is characterized by bilateral upper extremity radiculopathy, numbness, tingling that is worse on the right side. He is post op day 1 from scheduled C3-C7 total disc replacement. Patient denies having a bowel movement and has not voided yet. Patient states pain levels are minimal at 2/10 at the time of interview. Patient denies any headache, chest pain, shortness of breath, abdominal pain. 12/12/2024 patient seen and examined at bedside. No acute events overnight. Patient pain controlled with medications. Able to ambulate, urinate on his own. WBC 9.05, Hgb 14.7, platelet 209, sodium 137, potassium 4.4, bicarb 20.6, BUN 15.8, creatinine 1.1 Physical Exam: Vital signs reviewed General: nontoxic, no distress, appears at stated age Derm: warm, dry, intact Head: atraumatic, normocephalic, symmetric Neck: Soft c-collar in place, surgical site clean and dry with wound dressing with no swelling or erythema or discharge of surrounding skin Eyes: EOMI, anicteric sclera Mouth: no lip lesion, mucus membranes moist Cardiovascular: S1 S2 reg, no murmur, rubs, or gallops Lungs: CTA bilateral, no rhonchi, no rales, no accessory muscle use Abdominal: nondistended non-tender to palpataion, no appreciable organomegaly Extremities: no gross muscle atrophy, no edema, no contractures Neuro: Alert, Oriented, CNII-XII grossly intact, gait normal Psych: well appearing, appropriate affect Assessment and Plan: #. Hypertension #. Hyperlipidemia #. Atrial fibrillation (not on anticoagulation) Continue amlodipine 10 mg p.o. daily Continue lisinopril 40 mg p.o. daily Continue metoprolol succinate 100 mg p.o. twice daily Continue rosuvastatin 20 mg p.o. daily Continue home ASA 81 mg po qd Stable from internal medicine standpoint #. Severe spinal spondylosis and stenosis s/p C3-C7 total disc replacement POD 2 Pain, DVT prophylaxis, and antibiotics deffered to ortho team PT/OT ortho team likely to discharge Iman Zaragoza MD PGY-1/Historical Guide Internal Medicine Dictation was produced using [employer] dictation software. please excuse any grammatical, word or spelling errors. I saw and evaluated the patient during the davila and critical portions of this encounter, and discussed the case in detail with the resident author of this note, I agree with the Assessment and Plan, and my changes, if any, are highlighted in blue. Objective - Vital Signs Vital signs: Vital Signs Temp 98.0 F 12/12/24 00:38 Pulse 93 12/12/24 00:38 Resp 20 12/12/24 00:38 BP 152/90 12/12/24 00:38 Pulse Ox 93 L 12/12/24 00:38 FiO2 Intake & Output 12/11/24 12/11/24 12/12/24 06:59 18:59 06:59 Intake Total 2650 2160 Output Total 670 Balance 1980 2160 Weight 115.4 kg 115.4 kg Intake: IV 2650 Oral 2160 Output: Urine 570 Estimated Blood Loss 100 Other: # Voids 4 - Labs CBC & Chem 7: 12/12/24 03:56 12/12/24 03:56 Labs: Abnormal Lab Results - Last 24 Hours (Table) 12/11/24 Range/Units 10:56 Carbon Dioxide 19 L (22-30) mmol/L
== END 2024-12-12 10:50 | disposition home or self-care (01) ==
LOC: OR 10:04 → 4SSUR 17:53 → OR 12-12 10:50
PROVIDERS: ATTEND Orthopaedic Surgery
DX: M47.22 Other spondylosis with radiculopathy, cervical region (principal); M47.12 Other spondylosis with myelopathy, cervical region; M50.11 Cervical disc disorder with radiculopathy, high cervical region; M48.02 Spinal stenosis, cervical region; I48.91 Unspecified atrial fibrillation; E78.5 Hyperlipidemia, unspecified; I10 Essential (primary) hypertension; Z79.82 Long term (current) use of aspirin; Z79.1 Long term (current) use of non-steroidal anti-inflammatories (NSAID); Z79.899 Other long term (current) drug therapy
CPT/HCPCS: 22856; 22858; 22551; 22552; 22853 ×2; 20930; 20936; 22845; 80048; 85025; 72040; J1100; J0690; J2405; J1171